=== PATIENT | female | born 1990 | race African-American/Black ===

== ENCOUNTER 2021-05-03 11:52 | Emergency (ER) | payer OTHER, SELFPAY ==
[2021-05-03 11:59] VITALS: BP 118/87; PULSE 87; RESP 16; TEMP 36.4; O2SAT 100
[2021-05-03 12:03] VITALS: BP 118/87; PULSE 87; RESP 16; TEMP 36.4; O2SAT 100
--- NOTE | 2021-05-03 12:10 | ED_ITS ---
HPI - Skin/Abscess/Foreign Bdy General Chief complaint: Skin/Abscess/Foreign Body Stated complaint: WOUND TO L LEG Source: patient and RN notes reviewed Limitations: no limitations History of Present Illness HPI narrative: The overweight patient, who is transgender, presents with skin eruption. Patient states 'she' has about 10-day history of pink, raised, weeping, crusting circular eruption on her left thigh. She has similar one on the opposite side thigh that resolved spontaneously. No fever, fluctuance, streaking, abscess. But the area there is thickened and indurated. Patient advised not to shave the legs, keep area covered Related Data Allergies Allergy/AdvReac Type Severity Reaction Status Date / Time No Known Allergies Allergy Unknown Verified 12/11/12 11:44 Review of Systems Review of Systems: General/Constitutional: No weight loss,fever Eyes: N0: Redness,discharge Ears/Nose/Throat: No: Epistaxis,ear discharge Respiratory: Denies: Hemoptysis Gastrointestinal: No Vomiting, Bleeding-rectal Skin: No Lumps, REPORTS eruption Neurologic: No Focal Weakness,Sz Hematologic: Denies: Petechiae/Purpura Psychiatric: No: Suicida ideationl All Other Systems: Reviewed and Negative [facility] Family History Family History (Updated 03/24/14 @ 07:13 by DOCTOR UNKNOWN) Father Family history of heart disease in male family member before age 55 Other Cerebrovascular accident Hypertension Comments At time of signature, agree with nursing past medical, surgical, social and family history. There is no relevant family history pertinent to the presenting complaint Exam Narrative: General Appearance: Overweight/well nourished, Head: Normocephalic,, Conjunctiva clear Mouth/Throat: Normal appearing Neck Exam: Supple Respiratory: Airway patent, No respiratory distress Musculoskeletal: Moves all extremities, Non tender Skin: Warm, Dry; half-dollar sized area of crusting sores, pustules, scant discharge Neurological: A&O x3 Psychiatric: Normal mood, Normal affect Course Vital Signs Vital signs: Vital Signs Temperature 97.6 F 05/03/21 11:59 Pulse Rate 87 05/03/21 11:59 Respiratory Rate 16 05/03/21 11:59 Blood Pressure 118/87 05/03/21 11:59 Pulse Oximetry 100 05/03/21 11:59 Temperature 97.6 F 05/03/21 12:03 Pulse Rate 87 05/03/21 12:03 Respiratory Rate 16 05/03/21 12:03 Blood Pressure 118/87 05/03/21 12:03 Pulse Oximetry 100 05/03/21 12:03 Discharge Plan Discharge Clinical Impression: Ecthyma Patient Disposition: Home, Self-Care Condition: Stable Instructions: Antibiotic Form, Cellulitis (ED) Additional Instructions: Stop clindamycin if diarrhea occurs; take antibiotic with food, probiotic and/or antacid Keep photo log of area; see PMD or Derm if not improved Prescriptions: New clindamycin HCl 300 mg capsule 300 mg PO TID Qty: 24 RF: 0 mupirocin 2 % ointment 1 applic TOPICAL TID Qty: 30 RF: 0 Follow-up/Referrals: PHYSICIAN,OPERATIONS PROFESSIONAL [Primary Care Provider] - Stand Alone Forms: Work/School Release IP
== END 2021-05-03 12:22 | disposition home or self-care (01) ==
PROVIDERS: Emergency Provider Emergency Medicine
DX: L08.0 Pyoderma (principal)
CPT/HCPCS: 99203; G0463